=== PATIENT | male | born 1965 | race Two or more races ===

== ENCOUNTER 2025-01-15 08:00 | Inpatient (IN) | payer OTHER ==
[~2025-01-15] VITALS: Ht 165.1 cm; Wt 86.2 kg
[2025-01-15] MEDS ORDERED: IRBESARTAN150 MG PO (10:09)
[2025-01-15 10:11] VITALS: BP 150/94
[2025-01-22] MEDS ORDERED: CEFAZOLIN SODIUM 1,000 MG VIAL ONE (11:31)
[2025-01-22] MEDS ORDERED: TRANEXAMIC ACID 100MG/1ML (1000MG) AMPUL ONE (11:32)
[2025-01-22] MEDS ORDERED: KETOROLAC TROMETHAMINE 60 MG VIAL IM ONE (14:33)
[2025-01-22] MEDS ORDERED: BUPIVACAINE HCL/Mpf 0.5% 10ML VIAL ONE (14:33)
[2025-01-22] MEDS ORDERED: LIDOCAINE HCL 1%/EPINEPHRINE 20ML VIAL IJ ONE (14:34)
[2025-01-22] MEDS ORDERED: VANCOMYCIN HCL 1,000 MG VIAL ONE (14:34)
[2025-01-22] MEDS ORDERED: MORPHINE SULFATE 4 MG/ML CARTRIDGE IV ONE (16:30)
[2025-01-22] MEDS ORDERED: TRANEXAMIC ACID 100MG/1ML (1000MG) AMPUL IV ONE (18:00)
[2025-01-22] MEDS ORDERED: SODIUM CHLORIDE 0.45 % 1,000 ML IV SCH (18:15)
[2025-01-22] MEDS ORDERED: MORPHINE SULFATE 4 MG/ML CARTRIDGE IV PRN (18:15)
[2025-01-22] MEDS ORDERED: ONDANSETRON HCL 2 MG/ML VIAL IV PRN (18:15)
[2025-01-22] MEDS ORDERED: GENTAMICIN SULFATE 40 MG/ML VIAL IV SCH (21:00)
[2025-01-22 22:46] VITALS: BP 110/65; O2SAT 99
[2025-01-23] MEDS ORDERED: CEFAZOLIN SODIUM 1,000 MG VIAL IV SCH
[2025-01-23 01:40] VITALS: BP 110/68; O2SAT 98
[2025-01-23 06:32] LABS: BASO % 0.1 % (0.1-1.2); EOS # 0.00 (0.04-0.54); EOS % 0.0 % (0.7-7.0); LYMPH # 0.70 (1.18-3.74); LYMPH % 7.0 % (19.3-53.1); MEAN PLATELET VOLUME 10.00 fl (9.4-12.4); MONO # 0.70 (0.24-0.82); MONO % 7.0 % (4.7-12.5); NEUT # 8.59 (1.56-6.13); NEUT % 85.6 % (34.0-71.1); RED CELL DISTRIBUTION WIDTH 12.6 % (11.6-14.4)
[2025-01-23] MEDS ORDERED: ACETAMINOPHEN WITH CODEINE 1 UDTAB TABLET PO PRN (08:30)
[2025-01-23] MEDS ORDERED: IRBESARTAN 150 MG TABLET PO SCH (09:00)
[2025-01-23] MEDS ORDERED: CELECOXIB 200 MG CAPSULE PO SCH (09:00)
[2025-01-23] MEDS ORDERED: IRON FUM,PS/FOLIC/BCOMP,C NO.9 1 CAP CAPSULE PO SCH (09:00)
[2025-01-23] MEDS ORDERED: BACITRACIN 28.35 GM OINT.TUBE TOP SCH (09:00)
[2025-01-23] MEDS ORDERED: SENNA/DOCUSATE SODIUM 1 TAB TABLET PO SCH (09:00)
[2025-01-23] MEDS ORDERED: RIVAROXABAN 10 MG TAB PO SCH (09:00)
[2025-01-23 16:11] VITALS: BP 142/82; O2SAT 98
[2025-01-23 19:52] LABS: COVID-19 AG NEGATIVE (NEGATIVE)
[2025-01-23 20:00] LABS: ALT/SGPT 22.0 U/L (12-78); AST/SGOT 17.0 U/L (15-37); BILIRUBIN TOTAL 0.66 mg/dL (0.3-1.2); BUN CREA RATIO 15.0 (7.0-25.0); CREATININE SERUM 1.16 mg/dL (0.70-1.30); GFR 64.66; GLOBULINA 2.7 G/DL (2.4-3.5); GLUCOSE FASTING 113.0 mg/dL (65-100); OSMOLALITY SERUM 285.0 MOSM/KG (275-295)
[2025-01-23] MEDS ORDERED: SULFAMETHOXAZOLE/TRIMETHOPRIM DS 1 TAB PO SCH (21:00)
[2025-01-24 00:21] VITALS: BP 134/81; O2SAT 98
[2025-01-24] MEDS ORDERED: INTEGRA PLUS C1 EACH PO (06:14)
[2025-01-24] MEDS ORDERED: XARELTO10 MG PO (06:14)
[2025-01-24] MEDS ORDERED: Septra Ds Tablet PO (06:14)
[2025-01-24] MEDS ORDERED: ACETAMINOPHEN-1 EAC2 PO (06:15)
[2025-01-24 08:00] VITALS: BP 170/80; O2SAT 98
[2025-01-24 08:45] LABS: BASO % 0.2 % (0.1-1.2); EOS # 0.02 (0.04-0.54); EOS % 0.2 % (0.7-7.0); LYMPH # 1.54 (1.18-3.74); LYMPH % 16.5 % (19.3-53.1); MEAN PLATELET VOLUME 10.70 fl (9.4-12.4); MONO # 1.24 (0.24-0.82); NEUT # 6.49 (1.56-6.13); NEUT % 69.5 % (34.0-71.1); RED CELL DISTRIBUTION WIDTH 12.8 % (11.6-14.4)
[2025-01-24 08:52] LABS: MONO % 13.3 % (4.7-12.5)
[2025-01-24 11:45] VITALS: BP 145/85
== END 2025-01-24 15:07 | disposition home or self-care (01) | DRG 470 ==
LOC: SURG 01-22 07:00 → SURH 01-22 21:40
PROVIDERS: Internal Medicine; ADMIT Orthopaedic Surgery Sports Medicine; ATTEND Orthopaedic Surgery Sports Medicine
PROC: 0SRC0J9 Replacement of Right Knee Joint with Synthetic Substitute, Cemented, Open Approach (ICD-10-PCS; principal; 2025-01-22 07:00)
DX: M17.11 Unilateral primary osteoarthritis, right knee (principal); I10 Essential (primary) hypertension